=== PATIENT | male | born 1965 | race Caucasian/White ===

== ENCOUNTER 2021-07-30 22:57 | Emergency (ER) | payer OTHER ==
[~2021-07-30] VITALS: Ht 170.2 cm; Wt 77.1 kg
[2021-07-30 22:57] VITALS: BP 155/90
--- NOTE | 2021-07-31 00:41 | NUR ---
PATIENT BIB [facility] [employer]ICE DEPT. PATIENT EXAMINED BY . PATIENT MEDICALLY CLEARED AND RELEASED IN CUSTODY IN STABLE CONDITION. ORIGINAL PRE-BOOK FORM GIVEN TO OFFICER #[id number].
== END 2021-07-31 00:41 ==
LOC: MED 22:57
DX: F10.129 Alcohol abuse with intoxication, unspecified (principal); V89.2XXA Person injured in unspecified motor-vehicle accident, traffic, initial encounter; Y93.89 Activity, other specified; Y92.89 Other specified places as the place of occurrence of the external cause; Y99.8 Other external cause status
CPT/HCPCS: 99283